=== PATIENT | male | born 1970 | race Caucasian/White ===

== ENCOUNTER → 2016-08-22 | Outpatient (CLI) | payer OTHER, MEDICARE, MEDICAID ==
[~2016-08-22] MED LIST: 'PARAFON FORTE500 M1 PO; AMBIEN10 M1 PO; AMOXICILLIN500 MG PO; ANAPROX DS550 MG PO; ANUSOL-HC25 MG R; ASPIRIN CHEWABL81 M1 PO; ATIVAN0.5 MG PO; AUGMENTIN 875875 MG PO; CELEXA20 MG PO; CIPRO500 MG PO; COREG12.5 MG PO; COREG25 MG PO; DARVOCET N 1001 TAB PO; DAYPRO600 M1 PO; DEXILANT60 M1 PO; DEXILANT60 MG PO; FLONASE ALLERG9.9 ML NAS; FLUDROCORTISON0.1 MG PO; HYDR25T PO; HYDROCHLOROTHIA25 M1 PO; KEFLEX500 MG PO; LISINOPRIL5 MG PO; LOPRESSOR25 MG PO; METOPROLOL TART50 M1 PO; METOPROLOL50 MG PO; MIDODRINE HCL5 M1 PO; MOTRIN800 MG PO; NAPROSYN500 MG PO; NILSTAT,MY500000 UN/ PO; NORCO 325 MG-51 TAB PO; NORVASC10 MG PO; NORVASC5 MG PO; PENICILLIN-VK500 M1 PO; PERCOCET 325 MG1 TA2 PO; PERCOCET 325 MG1 TA7 PO; PRAVASTATIN SOD20 MG PO; PRILOSEC20 MG PO; PRILOSEC40 MG PO; PRINIVIL10 MG PO; REQUIP1 TAB PO; SEA-OMEGA 50 C1 EACH PO; TOPROL XL25 MG PO; TRICOR145 MG PO; ULTRAM50 MG PO; VASOTEC20 MG PO; VICODIN 500 MG-1 TAB PO; VYTORIN 10 MG-11 TAB PO; WARFARIN 2.5 MG PO; WARFARIN SODIUM1 MG PO; WARFARIN2 MG PO; ZOFRAN ODT4 MG SL; ZOFRAN4 MG PO; ZOLOFT50 MG PO; ZYRTEC10 MG PO; [UNRECOGNIZED DRUG - REMARK]
== END | disposition home or self-care (01) ==
LOC: RAD 15:22
DX: M54.16 Radiculopathy, lumbar region (principal); M54.5 Low back pain; G89.29 Other chronic pain

== ENCOUNTER 2016-10-31 14:16 | Inpatient (IN) | payer MEDICARE, MEDICAID ==
[~2016-10-31] VITALS: Ht 193 cm; Wt 110.2 kg
--- NOTE | ~2016-10-31 | ST ---
[place], [place] EXERCISE STRESS TEST REPORT [id number] UNIT #: [id number] ROOM: 405 DOCTOR: DILIA WARREN MD BIRTHDATE: [birth year] DOS: 11/02/2016 INDICATION: Chest pain. PROCEDURE: The patient was brought into the stress lab. The procedure was explained with risks, benefits, and alternatives. Lexiscan was given. The resting blood pressure 102/72 with ending blood pressure 102/78. The patient tolerated this procedure well. ELECTROCARDIOGRAM INTERPRETATION: Resting electrocardiogram showing normal sinus rhythm, heart rate 76, poor R-wave progression, and mild nonspecific ST-T changes. Following the injection, there was no evidence of any significant ST or T-wave changes suggestive of myocardial ischemia. No arrhythmias were noted. SUMMARY: 1. Adequate Lexiscan stress test. 2. Negative Lexiscan stress test with stress-induced myocardial ischemia. 3. No arrhythmias were noted. 4. Myoview results will be reported separately. DILIA WARREN MD CM:STRESS:EXERCISE STRESS TEST REPORT [id number] DILIA WARREN MD
--- NOTE | ~2016-10-31 | PR ---
[place], [place] PROGRESS NOTE NAME: LIVE SMILEY UNIT #: [id number] ROOM: 405 DOCTOR: MARY ANNE ZELAYA MD BIRTHDATE: [birth year] DOS: 11/01/2016 SUBJECTIVE: The patient still complaining of persistent sweats, left-sided chest pains and is discussing this with bag loader, Dr. Ángel Guerrier who is quite concerned about his symptoms, although his cardiac enzymes have been negative. Dr. Ángel Guerrier is planning to get an echocardiogram and a cardiac stress test. OBJECTIVE: GENERAL APPEARANCE: The patient is alert and oriented x 3, in no visible distress. HEENT AND NECK: Exam within normal limits. CARDIOVASCULAR SYSTEM: Heart rate is regular in rate and rhythm. S1 and S2 normally audible. LUNGS: Clear to auscultation. ABDOMEN: Soft, nontender. No obvious organomegaly. Bowel sounds are present. EXTREMITIES: Without significant cyanosis or edema. IMPRESSION: 1. Left-sided chest pain, sweating, shortness of breath. All symptoms of angina, but all cardiac enzymes are negative. It appears highly unlikely that the patient is having myocardial ischemia. The patient will be further worked up for symptoms with an echocardiogram and a cardiac stress test by Cardiology as discussed with them today. 2. Chronic diastolic type congestive heart failure without increasing shortness of breath. 3. Benign essential hypertension with controlled blood pressures. 4. History of coronary artery disease of the [place] vessels. 5. Gastroesophageal reflux disease and esophagitis, presently asymptomatic. MARY ANNE ZELAYA MD CM:PNTRANS [id number] MARY ANNE ZELAYA MD 11/02/16 0115 interface
--- NOTE | ~2016-10-31 | PR ---
[place], [place] PROGRESS NOTE NAME: LIVE SMILEY UNIT #: [id number] ROOM: 405 DOCTOR: DILIA WARREN MD BIRTHDATE: [birth year] DOS: 11/02/2016 REFERRING PHYSICIAN: Dr. Darin Oconnell. SUBJECTIVE: The patient is in the stress lab. Sitting in a chair. Denies any specific cardiac complaint. No chest pain, no chest pressure, no symptomatic palpitation, no recurrent sweats. OBJECTIVE: VITAL SIGNS: Blood pressure 122/78, heart rate 73, respiratory rate of 16, temperature 98.2. NECK: Good upstroke, no bruit. HEART: S1, S2, no rub. LUNGS: Clear to auscultation. EXTREMITIES: Lower extremities, no edema. LABORATORY DATA: White count 9.8, hemoglobin is 14.4. There is no left shift, sed rate is 11. C-reactive protein is 1.1, troponin less than 0.015 x 3. Echocardiogram still pending. Stress test in process of obtaining the procedure. ASSESSMENT AND PLAN: Presentation with chest pain that have some typical features. So far, cardiac enzymes have been negative. We are awaiting the results of the stress test this morning, the patient requested to re-Lexiscan. Drenching sweats along with previous history of AICD, for that an echocardiogram will be done to rule out any vegetations though patient's sed rate is low and white count is normal and there is no evidence of left shift. The patient can be discharged home if the nuclear images and the echocardiogram results are normal. The patient has a followup appointment with ____ next week and he will keep that. The patient was advised to call back should there be any recurrence of his symptoms at any time. [place], [place] PROGRESS NOTE NAME: LIVE SMILEY UNIT #: [id number] ROOM: 405 DOCTOR: DILIA WARREN MD BIRTHDATE: [birth year] DILIA WARREN MD CM:PNTRANS [id number] DILIA WARREN MD 11/02/16 2215 interface
--- NOTE | ~2016-10-31 | WRIGHTHP ---
[place], [place] PATIENT HISTORY AND PHYSICAL EXAM NAME: LIVE SMILEY [facility] #: [id number] UNIT #: [id number] ROOM: 405 DOCTOR: MARY ANNE ZELAYA MD BIRTHDATE: [birth year] DOS: 10/31/2016 HISTORY OF PRESENT ILLNESS: 1. The patient is a 46-year-old gentleman with a past medical history of chronic diastolic type congestive heart failure. 2. Alcoholic cardiomyopathy. 3. Coronary artery disease of the [place] vessels. 4. Benign essential hypertension. 5. Major depression, recurrent. 6. Gastroesophageal reflux disease. 7. Chronically elevated liver enzymes. 8. Orthostatic hypotension. The patient presented to the Emergency Department with 3-day complaints of left-sided chest pains radiating down his left arm and shortness of breath and sweating for about 3 days since he was out in the yard and cutting grass. The patient feels that he has a pulled muscle, strain muscle in his left chest. The patient was evaluated in the Emergency Department and CT angiogram showed no abnormality and troponin I level was negative, even after 3 days of chest pains. There was no leukocytosis and despite of complaining of shortness of breath, chest x-ray did not show any signs of congestive heart failure. There was no leukocytosis, no signs of pneumonia. The patient was admitted to [facility] for continued care to a monitored bed. REVIEW OF SYSTEMS: LUNGS: Increasing shortness of breath. GASTROINTESTINAL: Some nausea, but no vomiting. CARDIOVASCULAR: Complains of left-sided chest pains, no palpitations. PHYSICAL EXAMINATION: VITAL SIGNS: Blood pressure 140/98, heart rate 90 beats per minute, breathing 22 times per minute, temperature 98 degrees Fahrenheit. GENERAL APPEARANCE: The patient is alert and oriented x 3, in no visible distress. HEENT AND NECK: Extraocular movements are intact. Sclerae are anicteric. Oral mucosa is moist and clean. No obvious facial weakness. Neck is supple without any lymphadenopathy. No thyromegaly. No JVD. No carotid arterial bruits. LUNGS: Clear to auscultation. No wheezing. No rhonchi. CARDIOVASCULAR SYSTEM: Heart rate is regular in rate and rhythm. S1 and S2 normally audible. No significant murmur or any other abnormal cardiac sounds. ABDOMEN: Soft, nontender. No obvious organomegaly. Bowel sounds are present. No obvious herniation. EXTREMITIES: Without significant cyanosis or edema. Warm to touch. CENTRAL NERVOUS SYSTEM: Alert and oriented x 3. Cranial nerves II-XII are intact. Speech is normal. The patient is able to move all extremities. Normal muscle strength. Deep tendon reflexes are equal on both sides. Plantars were downgoing. IMPRESSION: 1. The patient presenting with left-sided chest pain with negative cardiac [place], [place] PATIENT HISTORY AND PHYSICAL EXAM NAME: LIVE SMILEY UNIT #: [id number] ROOM: 405 DOCTOR: MARY ANNE ZELAYA MD BIRTHDATE: [birth year] enzymes. The patient has had these pains along with shortness of breath and nausea and sweating for about 3 days. If these pains were cardiac in origin, I would have expected the troponin I levels in the Emergency Department to be elevated. The patient been admitted and I am getting a stat consult with his vessel engineer, Dr. Gore and group. I will also keep him on morphine and his home medications. 2. Chronic diastolic type congestive heart failure, presently no signs of heart failure on chest x-ray. 3. Benign essential hypertension with elevated blood pressure apparently because the patient appears anxious and is complaining of pain, although his blood pressures have normalized. The patient says that his blood pressure was evaluated when he came to the ER along with a heart rate of 104 beats per minute with a systolic blood pressure 163 but the blood pressure has normalized now. 4. History of coronary artery disease of the [place] vessels. 5. Gastroesophageal reflux disease and esophagitis, presently asymptomatic. PLAN: To follow closely. MARY ANNE ZELAYA MD CM:HISPHYS:PATIENT HISTORY AND PHYSICAL EXAMINATION 16 24 MARY ANNE ZELAYA MD 10/31/162223 interface
--- NOTE | ~2016-10-31 | CON ---
[place], [place] REPORT OF CONSULTATION NAME: LIVE SMILEY UNIT #: [id number] ROOM: 405 DOCTOR: BRIANA CHANDRATARANANUSHKA BIRTHDATE: [birth year] DOS: 10/31/2016 REQUESTING PHYSICIAN: Dr. Anish Webster REASON FOR CONSULTATION: Chest pain. ASSESSMENT: 1. Current presentation with dizziness, lightheadedness, and almost near syncope. 2. Severe drenching night sweats 2 days in a row. 3. Chest pain dull, aching, radiating to the jaw and left arm and also to the back. 4. History of severe cardiomyopathy due to alcohol abuse. The patient quit with complete recovery. 5. Reported hypertension. 6. Significant early family history of heart disease. 7. Status post AICD generator due to infection. 8. The patient reporting fever and chills. 9. Similar complaint of chest pain in December 2015. 10. Normal echocardiogram read by Dr. Soto in June 2015. 11. Normal Holter monitor read by Dr. Soto in December 2014. 12. The patient is status post LINQ placement, followed by Dr. Sargent. PLAN: 1. Cycle cardiac enzymes. 2. Check D-dimer. 3. Check sed rate and CRP. 4. Check UA. 5. Blood cultures. 6. Echocardiogram. 7. Lexiscan stress test. 8. Continue current medical regimen. 9. Obtain records from the patient's recent visit to Dr. Sargent's office and his LINQ check. 10. IV fluid. HISTORY AND PHYSICAL: The patient is a pleasant 46-year-old gentleman well known to our group through Dr. Gore and Dr. Soto. The patient carries history of severe cardiomyopathy due to alcohol, which he has been managed to quit with complete recovery of the heart, which was documented on echocardiogram read by Dr. Soto back in December of last year. The patient had been doing quite well but this Sunday and Sunday while mowing the lawn started feeling dizzy and lightheaded. The patient walked in the room, almost passed out and sat down and relaxed and started having chest pain while resting. The pain is substernal. It did reach 8/10, radiated straight to the back and also to the left arm and his jaw at the same time. This has continued. The patient managed to stay at home, during the night had significant episodes, 3 of them on Sunday, of drenching sweats. He was forced to change the sheets. On Sunday night, had recurrent episodes similar to what happened Sunday, but this time, had only 2 episodes. The patient on presentation to the hospital, he has still [place], [place] REPORT OF CONSULTATION NAME: LIVE SMILEY UNIT #: [id number] ROOM: 405 DOCTOR: DILIA WARREN MD BIRTHDATE: [birth year] the chest pain, nitroglycerin was given with some improvement. Going by his record, the patient had similar presentation with Dr. Gore in December. Prior to this Sunday, the patient had been doing relatively well, active without any specific cardiac complaints. The patient did report fever, chills along with the night sweats that described above. His appetite is slightly decreased, but there is no reported weight loss. No PND, orthopnea or pedal edema. There is no reported symptomatic palpitation or any associated dizziness, lightheadedness or near syncope. PAST MEDICAL HISTORY: As detailed in my assessment. SOCIAL HISTORY: The patient denies any current alcohol or illicit drug abuse. He continued to smoke a few cigarettes, had been doing this for the past 23 years. FAMILY HISTORY: Significant early family history of heart disease. The patient's father had bypass surgery at age 53. His brother had a stroke at age 52. His mother had stents in her 50s. CURRENT MEDICATIONS: Hydrochlorothiazide, Protonix, Zofran, Toprol, lisinopril, Norvasc, Tylenol, sublingual nitro, morphine, Ambien and aspirin. REVIEW OF SYSTEMS: The patient currently denies any headache, diplopia, or blurry vision. No fever, no chills, no night sweats. Continued to be dizzy with any minimal activity like going to the bathroom in his room. No abdominal pain, no bright blood per rectum or tarry stools. The patient admits to joint pain and muscular pain. Admits to depression, but no anxiety. No polyuria, no polydipsia, no skin rash. Review of all other systems has been negative. PHYSICAL EXAMINATION: GENERAL: The patient is alert, oriented x3, quite pleasant. The patient is completely flat in bed, does not appear in distress. VITAL SIGNS: Blood pressure 125/73, heart rate 66, respiratory rate of 18, temperature 97.3, T-max is 97.8. HEENT: Extraocular muscles intact. Pupils equal, round, reactive to light. Conjunctivae: No pallor. Throat: No petechiae. NECK: Good upstroke. Unable to appreciate any bruit, no lymphadenopathy, no thyromegaly. HEART: S1, S2 with holosystolic murmur in the left upper sternal border. No rub or sternal heave. CHEST AND BACK: No deformities. LUNGS: Clear to auscultation. Good air movement. No wheezing, rales. ABDOMEN: Soft, nontender, present bowel sounds, no masses, no bruits. EXTREMITIES: Lower extremities, mild ankle edema with faint distal pulses. NEUROLOGIC: Grossly nonfocal. SKIN: No significant rash. Electrocardiogram show normal sinus rhythm. LABORATORY DATA: White count 9.8. There is no left shift, hemoglobin 15.4. [place], [place] REPORT OF CONSULTATION NAME: LIVE SMILEY UNIT #: [id number] ROOM: 405 DOCTOR: DILIA WARREN MD BIRTHDATE: [birth year] Troponin less than 0.015 times 3. The potassium 3.4, creatinine . AST 88, ALT 119, alkaline phosphatase 95, magnesium 1.3, GFR more than 60%. DILIA WARREN MD CM:CONSTR:REPORT OF CONSULTATION 0941 11/01/16 2343 interface
[2016-10-31 14:28] VITALS: BP 163/87
[2016-10-31 14:40] LABS: BASO % 0.4 % (0.0-1.0); EOS # 0.1 10*3/uL (0.0-0.4); EOS % 1.2 % (1.0-4.0); HEMATOCRIT 43.8 % (42.0-52.0); HEMOGLOBIN 15.4 g/dl (14.0-18.0); LYMPH # 3.2 10*3/uL (1.3-4.4); LYMPH % 32.3 % (27.0-41.0); MEAN CELL VOLUME 87.3 fl (80.0-94.0); MEAN CORPUSCULAR HGB 30.7 pg (27.0-31.0); MEAN CORPUSCULAR HGB CONC 35.2 g/dl (33.0-37.0); MEAN PLATELET VOLUME 9.4 fl (9.6-12.3); MONO # 0.7 10*3/uL (0.1-1.0); MONO % 7.4 % (3.0-9.0); NEUT # 5.7 10*3/uL (2.3-7.9); NEUT % 58.3 % (47.0-73.0); PLATELET COUNT AUTOMATED 256 10*3/uL (130-400); RED BLOOD COUNT 5.02 10*6/uL (4.50-5.90); RED CELL DISTRI WIDTH 12.9 % (0-14.5); WHITE BLOOD COUNT 9.8 10*3/uL (4.8-10.8)
[2016-10-31 14:58] LABS: ALBUMIN 3.6 gm/dl (3.1-4.5); ALKALINE PHOSPHATASE 95 U/L (45-117); BILIRUBIN, TOTAL 0.6 mg/dl (0.2-1.0); BUN 17 mg/dl (7-24); CARBON DIOXIDE 23 mmol/L (21-32); CHLORIDE 98 mmol/L (98-107); EST GLOM FILT AFRICAN AMERICAN > 60 ml/min; GLUCOSE 128 mg/dL (65-99); MAGNESIUM 1.3 mg/dL (1.5-2.1); POTASSIUM 3.4 mmol/L (3.5-5.1); SGOT/AST 88 IU/L (3-35); SGPT/ALT 119 U/L (12-78); SODIUM 138 mmol/L (136-145); TOTAL PROTEIN 7.8 gm/dL (6.4-8.2)
[2016-10-31 14:59] LABS: TROPONIN I < 0.015 ng/ml (<0.045)
[2016-10-31 15:16] VITALS: BP 135/85
[2016-10-31 15:28] VITALS: BP 141/81
[2016-10-31 16:00] VITALS: BP 135/96
[2016-10-31 16:56] VITALS: BP 141/97
[2016-10-31 18:00] VITALS: BP 140/98
[2016-11-01] VITALS: BP 119/80
[2016-11-01 08:00] VITALS: BP 125/73
[2016-11-01 12:00] VITALS: BP 130/72
[2016-11-01 16:00] VITALS: BP 115/57
[2016-11-01 20:00] VITALS: BP 124/76
[2016-11-02] VITALS: BP 114/65
[2016-11-02 08:00] VITALS: BP 122/78
[2016-11-02 16:00] VITALS: BP 129/74
== END 2016-11-02 19:19 | disposition home or self-care (01) | DRG 313 ==
LOC: ED 14:16 → EDHOLD 15:59 → 4E 15:59
PROVIDERS: Emergency Medicine
PROC: 4A02XM4 Measurement of Cardiac Total Activity, External Approach (ICD-10-PCS; principal; 2016-11-02)
DX: R07.89 Other chest pain (principal); I25.10 Atherosclerotic heart disease of native coronary artery without angina pectoris; I42.6 Alcoholic cardiomyopathy; I50.32 Chronic diastolic (congestive) heart failure; I11.0 Hypertensive heart disease with heart failure; E83.42 Hypomagnesemia; F33.9 Major depressive disorder, recurrent, unspecified; K21.0 Gastro-esophageal reflux disease with esophagitis; F17.210 Nicotine dependence, cigarettes, uncomplicated; F10.10 Alcohol abuse, uncomplicated; Z82.49 Family history of ischemic heart disease and other diseases of the circulatory system; Z95.810 Presence of automatic (implantable) cardiac defibrillator; Z82.3 Family history of stroke; Z91.048 Other nonmedicinal substance allergy status; Z86.711 Personal history of pulmonary embolism

== ENCOUNTER 2017-01-05 17:44 | Inpatient (IN) | payer MEDICARE, MEDICAID ==
[~2017-01-05] VITALS: Ht 193 cm; Wt 113.9 kg
--- NOTE | ~2017-01-05 | DS ---
[place], [place] DISCHARGE SUMMARY [id number] UNIT #: [id number] ROOM: 529 DOCTOR: VIVIAN DUKE MD BIRTHDATE: [birth year] DOS: 01/07/2017 DIAGNOSES: 1. Precordial chest pain, ruled out for myocardial infarction. 2. History of alcoholic cardiomyopathy, is improved. 3. History of pacemaker, AICD placement. These devices have been removed. 4. Acute gouty arthritis, right foot. 5. Hyperuricemia. 6. Transaminitis. 7. Hypertriglyceridemia. MEDICATIONS ON DISCHARGE: Lopid 600 mg p.o. b.i.d., indomethacin 25 t.i.d. for 7 days, allopurinol 100 mg daily, Dexilant 60 daily, zolpidem 10 at bedtime, Requip 1 mg at bedtime p.r.n., metoprolol 25 b.i.d., enalapril 20 b.i.d., amlodipine 5 b.i.d., clonidine 0.1 b.i.d. p.r.n. HOSPITAL COURSE: The patient is a 46-year-old, known to me from previous admissions, comes in with complaints of chest pain and right foot pain. Please refer to H and P for details. After admission, rule out AK protocol was done which is ruled out. Consultation with Dr. Soto was obtained. He had a cardiac workup in 10/2016 which included a stress test and an echocardiogram, which were normal, so these have not been repeated, so no further cardiac workup is being done. He was noted to have hyperuricemia and acute gouty arthritis of the right foot. Indocin and allopurinol were started. The patient also has history of chronic transaminitis of unknown etiology. He has history of alcohol abuse, but states that he has been dry for the last 7 years. We will need to have a liver scan done as an outpatient since I was unable to do it over the weekend. He also was noted to have hypertriglyceridemia, Lopid was started, most likely has fatty infiltration, which is causing the LFT elevation. The patient is advised to follow up with his PCP, so he can further address these issues. His medications have been prescribed. As advised, continue low fat diet and avoid alcohol. [place], [place] DISCHARGE SUMMARY NAME: LIVE SMILEY UNIT #: [id number] ROOM: 529 DOCTOR: VIVIAN DUKE MD BIRTHDATE: [birth year] VIVIAN DUKE MD CM:MARIA L [id number] VIVIAN DUKE MD 01/08/17 0513 interface
--- NOTE | ~2017-01-05 | WRIGHTHP ---
[place], [place] PATIENT HISTORY AND PHYSICAL EXAM [facility] [id number] UNIT #: [id number] ROOM: 529 DOCTOR: VIVIAN DUKE MD BIRTHDATE: [birth year] DOS: 01/06/2017 HISTORY OF PRESENT ILLNESS: This patient is 46-year-old, known to me from previous admissions. He comes in with complaints of right ankle pain. The patient states that he was unable to move the ankle and also his right leg started hurting and thought he would have blood clot and so he decided to come in. He did not have any chest pain at the time he came in to the Emergency Room, but on closer questioning, he stated that he was having chest pain the day prior to this admission. He denies having any nausea, any emesis, any fever, chills, any abdominal pain. He was evaluated in the ER with an EKG and routine blood work and was admitted because of EKG changes. The patient this morning complains of severe foot pain and states that he is unable to even move the foot. PAST MEDICAL HISTORY: Significant for: 1. Last hospitalization in 10/2016 with transaminitis and chest pain, had a negative stress test at that time. 2. History of cardiomyopathy with history of pacemaker defibrillator, which were both removed when his ejection fraction improved. 3. Benign hypertension. 4. History of drug abuse. 5. History of alcohol abuse. 6. Poorly controlled hypertension. MEDICATIONS: Amlodipine 5 b.i.d., clonidine 0.1 b.i.d., Dexilant 60 daily, Vasotec 20 b.i.d., metoprolol 25 b.i.d., Requip 1 mg at bedtime, zolpidem 10 at bedtime. SOCIAL HISTORY: Nonsmoker, does not use any alcohol. The patient states that he is clean for the last 7 years. He occasionally smokes cigarettes, but it is a rare occurrence as per the patient. PHYSICAL EXAMINATION: GENERAL: He is awake and alert and oriented. VITAL SIGNS: Graphic trend shows that he is afebrile. Blood pressure is 142/70, pulse of 86, respirations 16. HEAD AND NECK: Within normal limits. LUNGS: Clear. HEART: Regular. ABDOMEN: Obese, soft, nontender. EXTREMITIES: I do not see any redness or any swelling suggestive of acute gout, but the patient complains of severe pain and is unable to move it. LABORATORY DATA: At the time of admission, uric acid is 9.5, white blood cell count is 10.4, hemoglobin 15.9, hematocrit 45.7. Chest x-ray shows no acute process. Comprehensive glucose 165, BUN 6, creatinine 0.92, potassium 3.3, SGOT 106, SGPT 89, alkaline phosphatase 132. Venous extremity of the lower legs shows no DVT. Protime 11.3, INR 1.1. CT of the chest, no evidence of PE. ASSESSMENT AND PLAN: [place], [place] PATIENT HISTORY AND PHYSICAL EXAM NAME: LIVE SMILEY UNIT #: [id number] ROOM: 529 DOCTOR: VIVIAN DUKE MD BIRTHDATE: [birth year] 1. The patient comes in with complaints of chest pain with some minimal T-wave inversions in the lateral leads, which is new when compared with previous EKG. The patient, however, had a stress test in October which was negative. We will ask Dr. Gore for an opinion. Three sets of enzymes were done and the patient's enzymes were negative. I did order Lovenox and nitrate. The patient did not receive Lovenox during the night for some unknown reason. Since his enzymes are negative, we will discontinue the Lovenox. Continue the nitrates. 2. Benign hypertension. History of poorly controlled hypertension, pressures, right now within normal limits. 3. Acute pain of his right foot. Uric acid was elevated, but the patient does not have any classic signs of gouty arthritis on exam, but we will put the patient on Indocin and allopurinol. We will ask Dr. Brush for an opinion. 4. Elevated liver enzymes noted, which he had in a previous visit here 2 months ago. Liver scan will be ordered. This most likely is from fatty infiltration of liver and hypertriglyceridemia. We will also add Lopid for that. VIVIAN DUKE MD CM:HISPHYS:PATIENT HISTORY AND PHYSICAL EXAMINATION [phone] VIVIAN DUKE MD 01/06/17 0853 interface
--- NOTE | ~2017-01-05 | CON ---
[place], [place] REPORT OF CONSULTATION NAME: LIVE SMILEY UNIT #: [id number] ROOM: 529 DOCTOR: LUISA WAGNER MD BIRTHDATE: [birth year] DOS: 01/06/2017 CARDIOLOGY CONSULTATION REASON FOR CONSULTATION: Chest pain, electrocardiographic changes. HISTORY OF PRESENT ILLNESS: This is one of several hospitalizations for the patient who is a 46-year-old man who does have a history of a dilated nonischemic cardiomyopathy, which was attributed to alcohol abuse in the past. He has been abstinent of alcohol for several years and his left ventricular function has improved. He did have an ICD placed in the distant past. He developed pocket erosion and an infection of the pacer site. Therefore, the device and its wire were removed. He has not had any documented ventricular tachycardia since then and in fact does have LINQ implantable monitor, which has shown no significant arrhythmias. The patient is known to have orthostatic hypotension and neurocardiogenic syncope. He has had a positive tilt table in the past. His catheterization on 08/12/2014 showed normal coronary arteries with an ejection fraction of 50%. A stress test on 11/02/2016 showed ejection fraction of 59% and no ischemia. The patient states that he was well until 2 nights ago. He did have an aching sensation in his chest, which was differed from anything he had experienced previously. It was not pleuritic or associated with diaphoresis, although he did feel somewhat short of breath. He was able to sleep with it, but when he woke up the next day he had severe pain in his right calf and first toe. There was minimal swelling that he reported. The pain in his chest had resolved entirely by that time and has not recurred. Since he has been in the hospital, his cardiac biomarkers have been normal; however, his electrocardiogram did show lateral T-wave inversions which were not present on previous EKG. Please note that I did pull out several EKGs from my office and he did have similar electrocardiographic changes on 08/21/2015 and 08/03/2015. Aside from his leg, he currently feels well. PAST MEDICAL HISTORY: Includes 1. Multiple syncopal episodes, felt to be due to neurocardiogenic syncope. 2. Tilt table study done by Dr. Dawood Tate on 09/09/2014 was positive for neurocardiogenic syncope. 3. 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 The ICD and his leads were eventually explanted because of a pacer pocket infection and pocket erosion. 4. History of cardiac catheterization on 08/12/[address] Brett Cloud, demonstrated normal coronary arteries with low normal left ventricular ejection fraction at 50%. 5. History of paroxysmal atrial fibrillation. 6. History of pulmonary emboli. 7. Atypical chest pain, most likely gastrointestinal in origin. 8. History of ethanol abuse, currently in remission. The patient states that he has been clean and sober for years. [place], [place] REPORT OF CONSULTATION NAME: LIVE SMILEY UNIT #: [id number] ROOM: 529 DOCTOR: LUISA WAGNER MD BIRTHDATE: [birth year] 9. Hypertension. 10. Echocardiogram on 07/14/2015, showed normal left ventricular size with mild concentric left ventricular hypertrophy and global hypokinesis. Estimated ejection fraction 40-45% with stage II diastolic dysfunction. No significant valve abnormalities. 11. History of obstructive sleep apnea. He was treated for a short time, but did not feel any improvement, so CPAP was discontinued. 12. Holter monitor done in 07/2015 showed normal sinus rhythm with normal heart rate variation and occasional premature contractions, but no sustained SVT or ventricular tachycardia and no prolonged pauses. 13. Myocardial perfusion study on 11/02/2016 showed normal ejection fraction of 59% and no ischemia. MEDICATIONS: Prior to admission, amlodipine 5 mg b.i.d., clonidine 0.1 mg b.i.d. p.r.n., Dexilant 60 mg daily, enalapril 20 mg b.i.d., metoprolol XL 25 mg b.i.d., Requip 1 tablet at bedtime and Ambien 10 mg at bedtime p.r.n. ALLERGIES: The patient lists allergies to TAPE. REVIEW OF SYSTEMS: The patient denies diplopia or loss of vision. He denies any focal weakness, but cannot stand on his right leg because of severe calf and foot pain. The patient does complain of lightheadedness, but has not had any syncope or recent falling episodes. He does have intermittent palpitations and chest pain. He denies orthopnea or PND. He does have dyspnea with exertion. He denies fevers, chills, sweats or recent weight change. He denies any skin rashes. He denies any change in his bowel or bladder habits and denies bleeding from his urine or stools. He denies any peripheral edema. He denies any hot, red or swollen joints and states he has never had gout. He denies pleuritic chest pain. He does have anxiety and depression. Remainder of the review of systems is negative except as noted above. SOCIAL HISTORY: The patient is and lives with his . He was an alcoholic, but states that he has been abstinent of all alcohol. He does smoke 3-4 cigarettes a day. PHYSICAL EXAMINATION: GENERAL: The patient is a well-nourished white male who is awake, alert and oriented. VITAL SIGNS: Pulse is 80 and regular, blood pressure is 124/78. He is afebrile. He weighs 113.9 kilograms with a body mass index of 30.6. HEENT: Normocephalic, atraumatic. Extraocular muscles are intact. Sclerae are clear. Pupils are equal, round and reactive to light. The oral mucosa is moist. Tongue is midline. NECK: Supple. He has no jugular distention. Carotids are full. He has no bruits. He has no neck or supraclavicular masses. No thyromegaly. LUNGS: Respirations are unlabored. His chest is clear to auscultation and percussion. He has no presacral edema or chest wall tenderness. CARDIOVASCULAR: His heart has a regular rhythm. He has a soft fourth heart sound, but no third heart sound. He has no murmur. He has no rubs. The PMI is not displaced. There is no precordial heave, lift or thrill. [place], [place] REPORT OF CONSULTATION NAME: LIVE SMILEY UNIT #: [id number] ROOM: 529 DOCTOR: LUISA WAGNER MD BIRTHDATE: [birth year] ABDOMEN: Soft and normoactive without masses, organomegaly or bruits. EXTREMITIES: Showed no edema on either side. His right ankle is slightly tender to palpation. Pedal pulses are easily palpated bilaterally. He has no palpable cords or hot or swollen joints. LABORATORY DATA: Hemoglobin is 15.9, white count 10,400, platelet count 273,000. INR 1.1, sodium 138, potassium 3.3, BUN 6, creatinine 0.9, uric acid mildly elevated at 9.5. AST elevated at 106, ALT elevated at 189, alkaline phosphatase elevated at 132. CK and troponins are normal. I reviewed his electrocardiogram, which showed sinus rhythm with nonspecific T-wave flattening in I and aVL and asymmetric T-wave inversion from V2 through V6. His most recent EKG from [facility] did not show these changes; however, old electrocardiograms from my office dated 08/03/2015 and 08/21/2015 are similar to the current study. IMPRESSIONS: 1. Atypical chest pain. The patient shows no signs of an acute myocardial infarction. 2. History of alcohol-induced cardiomyopathy from which the patient has recovered. 3. Palpitations, most likely due to normal variations in heart rhythm. 4. History of neurocardiogenic syncope and orthostatic hypotension. 5. Normal cardiac catheterization on 08/12/2014. 6. Abnormal electrocardiogram possibly due to positional changes, hyperventilation, etc. There is no evidence on his exam or EKG that he is having an acute ischemic event. PLAN: The patient is being treated for his leg pains. We will repeat electrocardiogram in the morning. If he is still here in the hospital in 48 hours, we will plan on doing an echocardiogram at that time to reassess his pericardium and left ventricular function. No other cardiac workup is planned at this time unless his status should change. We thank Dr. Carson for asking our advice regarding management of this patient. LUISA WAGNER MD CM:CONSTR:REPORT OF CONSULTATION 1628 01/06/17 2213 interface
--- NOTE | ~2017-01-05 | PR ---
[place], [place] PROGRESS NOTE NAME: LIVE SMILEY UNIT #: [id number] ROOM: 529 DOCTOR: VIVIAN DUKE MD BIRTHDATE: [birth year] DOS: SUBJECTIVE: The patient is doing fine, without any complaints. Denies any chest pains, palpitations, or shortness of breath. OBJECTIVE: VITAL SIGNS: ____ shows a pressure of 114/72, pulse of 74, respirations 20, temperature 98.5. LUNGS: Clear. HEART: Regular. ABDOMEN: Obese. EXTREMITIES: Without any edema. ASSESSMENT AND PLAN: 1. Right foot pain, most likely gouty arthritis with hyperuricemia, under control. 2. Chest pain. Cardiac workup in October was negative including a stress test. Dr. Soto agreed on not doing any further workup, could have an echocardiogram done as an outpatient, but she just had one done on October 2016, so it is not even 6 months ago and the patient to follow up with Dr. Santo. 3. Hypertriglyceridemia, medications have been started. VIVIAN DUKE MD CM:PNTRANS 0729 1020 VIVIAN DUKE MD 01/07/17 1445 interface
[2017-01-05 17:49] VITALS: BP 144/98
[2017-01-05 18:11] LABS: BASO # 0.1 10*3/uL (0.0-0.1); BASO % 0.5 % (0.0-1.0); EOS # 0.3 10*3/uL (0.0-0.4); EOS % 3.1 % (1.0-4.0); HEMATOCRIT 45.7 % (42.0-52.0); HEMOGLOBIN 15.9 g/dl (14.0-18.0); LYMPH # 3.1 10*3/uL (1.3-4.4); MEAN CELL VOLUME 85.7 fl (80.0-94.0); MEAN CORPUSCULAR HGB 29.8 pg (27.0-31.0); MEAN CORPUSCULAR HGB CONC 34.8 g/dl (33.0-37.0); MEAN PLATELET VOLUME 9.9 fl (9.6-12.3); MONO # 1.1 10*3/uL (0.1-1.0); MONO % 10.1 % (3.0-9.0); NEUT # 5.8 10*3/uL (2.3-7.9); PLATELET COUNT AUTOMATED 273 10*3/uL (130-400); RED BLOOD COUNT 5.33 10*6/uL (4.50-5.90); RED CELL DISTRI WIDTH 12.5 % (0-14.5); WHITE BLOOD COUNT 10.4 10*3/uL (4.8-10.8)
[2017-01-05 18:27] LABS: ALBUMIN 3.6 gm/dl (3.1-4.5); ALKALINE PHOSPHATASE 132 U/L (45-117); BILIRUBIN, TOTAL 0.7 mg/dl (0.2-1.0); BUN 6 mg/dl (7-24); CARBON DIOXIDE 23 mmol/L (21-32); CHLORIDE 104 mmol/L (98-107); CKMB 0.6 ng/ml (0.5-3.6); CPK 80 U/L (39-308); EST GLOM FILT AFRICAN AMERICAN > 60 ml/min; GLUCOSE 165 mg/dL (65-99); LDH 164 U/L (87-241); MAGNESIUM 1.4 mg/dL (1.5-2.1); POTASSIUM 3.3 mmol/L (3.5-5.1); SGOT/AST 106 IU/L (3-35); SGPT/ALT 189 U/L (12-78); SODIUM 138 mmol/L (136-145); TOTAL PROTEIN 7.6 gm/dL (6.4-8.2); TROPONIN I < 0.015 ng/ml (<0.045)
[2017-01-05 19:00] LABS: INTERNATIONAL NORM RATIO 1.1 (2.0-3.5); PROTHROMBIN TIME 11.3 SECONDS (9.0-12.4)
[2017-01-05 19:30] VITALS: BP 140/88
[2017-01-06] VITALS: BP 180/101
[2017-01-06] MEDS ORDERED: 'CLONIDINE0.1 MG PO (00:06)
[2017-01-06 04:00] VITALS: BP 118/63
[2017-01-06 04:58] LABS: CHOLESTEROL 181 mg/dL (<200); HDL CHOLESTEROL 22 mg/dl (40-60); TRIGLYCERIDES 476 mg/dl (<150)
[2017-01-06 08:00] VITALS: BP 112/70
[2017-01-06 11:55] VITALS: BP 124/78
[2017-01-06 16:00] VITALS: BP 125/76
[2017-01-06 20:00] VITALS: BP 141/88
[2017-01-07] VITALS: BP 114/72
[2017-01-07] MEDS ORDERED: ALLOPURINOL100 MG PO (07:30)
[2017-01-07] MEDS ORDERED: INDOMETHACIN25 M1 PO (07:30)
[2017-01-07] MEDS ORDERED: GEMFIBROZIL600 MG PO (07:30)
[2017-01-07 08:00] VITALS: BP 130/96
== END 2017-01-07 08:05 | disposition home or self-care (01) | DRG 554 ==
LOC: ED 17:44 → EDHOLD 21:18 → 5E 21:18
PROVIDERS: Internal Medicine; Physician Assistant
DX: M10.071 Idiopathic gout, right ankle and foot (principal); I42.6 Alcoholic cardiomyopathy; R07.2 Precordial pain; E78.1 Pure hyperglyceridemia; R74.0 Nonspecific elevation of levels of transaminase and lactic acid dehydrogenase [LDH]; F10.10 Alcohol abuse, uncomplicated; F17.210 Nicotine dependence, cigarettes, uncomplicated; I10 Essential (primary) hypertension; I95.1 Orthostatic hypotension; Z91.048 Other nonmedicinal substance allergy status; Z79.899 Other long term (current) drug therapy; Z82.49 Family history of ischemic heart disease and other diseases of the circulatory system; Z95.810 Presence of automatic (implantable) cardiac defibrillator

== ENCOUNTER 2017-06-22 15:13 | Inpatient (IN) | payer MEDICARE ==
[~2017-06-22] VITALS: Ht 193 cm; Wt 99.3 kg
--- NOTE | ~2017-06-22 | CON ---
[place], [place] REPORT OF CONSULTATION NAME: LIVE SMILEY UNIT #: [id number] ROOM: [facility] DOCTOR: GEGE GIRON MD BIRTHDATE: [birth year] DOS: 06/23/2017 CHIEF COMPLAINT: "I just really need help, I don't want to kill myself." HISTORY OF PRESENT ILLNESS: This is a 47-year-old white male who was brought in to the Emergency Room after he was found by his girlfriend in the garage with a gun in his mouth. The patient apparently has been struggling with depression most acutely since March 2017. 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 The reports to me that he has suffered from depression even as a teenager and had been on Effexor in the past, but did not like it. He endorses poor sleep with lack of energy during the day, fluctuating appetite, lack of motivation. Most notably, he reports that the pain is one of the things that wears him down. The pain is significant; it is a constant 6 on a scale of 1-10 with 10 being the worst pain ever. He does report that he is open to trying medication and believes that if he were to get some help, he could turn things around. He unfortunately admits to smoking a pack of cigarettes daily. He drinks heavily and uses cocaine as well. MENTAL STATUS: He is alert and oriented. Mood does seem to be down and depressed. Affect is flat, blunted with constricted range. He does now deny suicidal thoughts and states that if he can get help, he knows he can turn things around. There is no syed or psychosis and memory is fully intact. DIAGNOSIS: Major depression, recurrent. PLAN: I am going to start him on Cymbalta 30 mg at bedtime. In a day or two, I would increase this to 60. I did discuss the case with his nurse and suggested that Satellite D[employer] Technician reach out and get him hooked up with both a counselor and an appointment with a psychiatrist or a psychiatric nurse practitioner to follow him for his medication. I do not believe he needs to have any forced stay in a mental health hospital and can be safely discharged then as long as he has a support network as an outpatient. GEGE GIRON MD CM:CONSTR:REPORT OF CONSULTATION 0939 06/23/17 1009 interface
[~2017-06-22 15:13] MED LIST changes: +'CLONIDINE0.1 MG PO; +ALLOPURINOL100 MG PO; +GEMFIBROZIL600 MG PO; +INDOMETHACIN25 M1 PO; +REQUIP1 M1 PO; -REQUIP1 TAB PO; -TOPROL XL25 MG PO; +TOPROL XL50 M1 PO
[2017-06-22 15:24] VITALS: BP 132/79
[2017-06-22 16:07] LABS: HEMATOCRIT 50.7 % (42.0-52.0); HEMOGLOBIN 17.7 g/dl (14.0-18.0); MEAN CELL VOLUME 84.6 fl (80.0-94.0); MEAN CORPUSCULAR HGB 29.5 pg (27.0-31.0); MEAN CORPUSCULAR HGB CONC 34.9 g/dl (33.0-37.0); MEAN PLATELET VOLUME 9.6 fl (9.6-12.3); PLATELET COUNT AUTOMATED 369 10*3/uL (130-400); RED BLOOD COUNT 5.99 10*6/uL (4.50-5.90); WHITE BLOOD COUNT 25.1 10*3/uL (4.8-10.8)
[2017-06-22 16:10] VITALS: BP 126/74
[2017-06-22 16:23] LABS: ALBUMIN 4.5 gm/dl (3.1-4.5); ALKALINE PHOSPHATASE 112 U/L (45-117); BUN 9 mg/dl (7-24); CHLORIDE 104 mmol/L (98-107); LIPASE 158 U/L (73-393); POTASSIUM 3.8 mmol/L (3.5-5.1); SGOT/AST 32 IU/L (3-35); SGPT/ALT 41 U/L (12-78); SODIUM 145 mmol/L (136-145); TOTAL PROTEIN 8.8 gm/dL (6.4-8.2)
[2017-06-22 16:25] LABS: TROPONIN I < 0.015 ng/ml (<0.045)
[2017-06-22 16:26] LABS: ACETAMINOPHEN (TYLENOL) < 2.0 ug/ml (10-30)
[2017-06-22 16:27] LABS: TOTAL CELLS COUNTED 100 #CELLS
[2017-06-22 16:28] LABS: PLATELET SUFFICIENCY NORMAL (NORMAL)
[2017-06-22 17:41] LABS: ACT PARTIAL THROMBO TIME 26.1 SECONDS (20.8-31.5); INTERNATIONAL NORM RATIO 1.1 (2.0-3.5)
[2017-06-22 17:42] VITALS: BP 112/70
[2017-06-22 18:25] VITALS: BP 124/80
[2017-06-22 18:53] LABS: BILIRUBIN NEGATIVE (NEGATIVE); BLOOD NEGATIVE (NEGATIVE); CLARITY SL CLOUDY (CLEAR); COLOR YELLOW (YELLOW); GLUCOSE NEGATIVE (NEGATIVE); KETONE 1+ (NEGATIVE); LEUKO ESTERASE NEGATIVE (NEGATIVE); NITRITE NEGATIVE (NEGATIVE); PH 5.5 (5.0-9.0); SPECIFIC GRAVITY >= 1.030 (1.005-1.030); UROBILINOGEN 0.2 E.U./dl (0.2-1.0)
[2017-06-22 18:58] LABS: BACTERIA 1+; EPITHELIAL CELLS 0-2; MUCOUS TRACE; RBC 0-2 rbc/hpf (0-2)
[2017-06-22 19:00] VITALS: BP 129/78
[2017-06-22 19:00] LABS: URINE AMPHETAMINES < 1000 (1000ng/ml); URINE BARBITURATES < 200 (200ng/ml); URINE BENZODIAZEPINES < 200 (200ng/ml); URINE CANNABINOIDS (THC) < 50 (50ng/ml); URINE COCAINE > 300 (300ng/ml); URINE METHADONE < 300 (300ng/ml); URINE OPIATES < 300 (300ng/ml)
[2017-06-22 19:04] LABS: URINE PHENCYCLIDINE < 25 (25ng/ml)
[2017-06-22 20:00] VITALS: BP 122/77
[2017-06-23] VITALS: BP 131/92
[2017-06-23] MEDS ORDERED: LIPITOR40 MG PO (00:47)
[2017-06-23] MEDS ORDERED: LANTUS SOL100 UNIT/1 SQ (00:47)
[2017-06-23] MEDS ORDERED: POTASSIUM CHLO20 ME3 PO (00:49)
[2017-06-23] MEDS ORDERED: METFORMIN500 MG PO (00:50)
[2017-06-23] MEDS ORDERED: NORCO 5-325 TA1 EACH PO (00:52)
[2017-06-23] MEDS ORDERED: METOCLOPRAMIDE5 MG PO (00:53)
[2017-06-23] MEDS ORDERED: COLCRYS0.6 M1 PO (00:54)
[2017-06-23 04:00] VITALS: BP 113/56
[2017-06-23 06:00] LABS: BASO % 0.5 % (0.0-1.0); EOS # 0.2 10*3/uL (0.0-0.4); EOS % 2.2 % (1.0-4.0); LYMPH # 3.5 10*3/uL (1.3-4.4); LYMPH % 44.7 % (27.0-41.0); MEAN CELL VOLUME 86.6 fl (80.0-94.0); MEAN CORPUSCULAR HGB 29.1 pg (27.0-31.0); MEAN CORPUSCULAR HGB CONC 33.6 g/dl (33.0-37.0); MEAN PLATELET VOLUME 9.8 fl (9.6-12.3); MONO # 0.9 10*3/uL (0.1-1.0); MONO % 10.9 % (3.0-9.0); NEUT # 3.3 10*3/uL (2.3-7.9); NEUT % 41.4 % (47.0-73.0); PLATELET COUNT AUTOMATED 259 10*3/uL (130-400); RED BLOOD COUNT 4.99 10*6/uL (4.50-5.90); WHITE BLOOD COUNT 7.9 10*3/uL (4.8-10.8)
[2017-06-23 06:03] LABS: BUN 10 mg/dl (7-24); CHLORIDE 102 mmol/L (98-107); CHOLESTEROL 164 mg/dL (<200); CREATININE 0.92 mg/dL (0.70-1.30); PHOSPHOROUS 3.9 mg/dL (2.5-4.9); POTASSIUM 3.1 mmol/L (3.5-5.1); SODIUM 140 mmol/L (136-145); TRIGLYCERIDES 231 mg/dl (<150); VLDL CHOLESTEROL 46 mg/dL (6-40)
[2017-06-23 06:09] LABS: HEMATOCRIT 43.2 % (42.0-52.0); HEMOGLOBIN 14.5 g/dl (14.0-18.0)
[2017-06-23 06:11] LABS: FREE T4 1.01 ng/dl (0.76-1.46); HDL CHOLESTEROL 34 mg/dl (40-60); LDL CHOLESTEROL 84 mg/dL (9-159); THYROID STIM HORMONE (HS) 0.822 uIU/ml (0.358-4.75)
[2017-06-23 06:18] LABS: ACT PARTIAL THROMBO TIME 25.2 SECONDS (20.8-31.5); INTERNATIONAL NORM RATIO 1.1 (2.0-3.5)
[2017-06-23 08:16] VITALS: BP 105/61
[2017-06-23 08:18] LABS: VITAMIN D, 25-HYDROXY 13.7 ng/mL (30-100)
[2017-06-23 12:00] VITALS: BP 112/68
[2017-06-23] MEDS ORDERED: NEURONTIN100 MG PO (12:50)
[2017-06-23] MEDS ORDERED: DULOXETINE HCL30 MG PO (15:08)
[2017-06-23 16:13] VITALS: BP 118/73
== END 2017-06-23 16:45 | disposition home or self-care (01) | DRG 638 ==
LOC: ED 15:13 → EDHOLD 17:28 → ICCU 17:48
PROVIDERS: Emergency Medicine; Internal Medicine
DX: E11.649 Type 2 diabetes mellitus with hypoglycemia without coma (principal); F33.2 Major depressive disorder, recurrent severe without psychotic features; I42.6 Alcoholic cardiomyopathy; R65.10 Systemic inflammatory response syndrome (SIRS) of non-infectious origin without acute organ dysfunction; I11.0 Hypertensive heart disease with heart failure; I50.42 Chronic combined systolic (congestive) and diastolic (congestive) heart failure; I48.0 Paroxysmal atrial fibrillation; R45.851 Suicidal ideations; R00.0 Tachycardia, unspecified; I25.10 Atherosclerotic heart disease of native coronary artery without angina pectoris; K21.9 Gastro-esophageal reflux disease without esophagitis; G47.33 Obstructive sleep apnea (adult) (pediatric); F19.90 Other psychoactive substance use, unspecified, uncomplicated; F41.9 Anxiety disorder, unspecified; J45.909 Unspecified asthma, uncomplicated; F14.10 Cocaine abuse, uncomplicated; G89.29 Other chronic pain; M54.9 Dorsalgia, unspecified; F10.10 Alcohol abuse, uncomplicated; M47.896 Other spondylosis, lumbar region; E78.00 Pure hypercholesterolemia, unspecified; E78.1 Pure hyperglyceridemia; Z79.899 Other long term (current) drug therapy; Z95.0 Presence of cardiac pacemaker; Z86.79 Personal history of other diseases of the circulatory system; Z72.0 Tobacco use; Z82.49 Family history of ischemic heart disease and other diseases of the circulatory system; Z91.048 Other nonmedicinal substance allergy status; Z86.711 Personal history of pulmonary embolism; Z79.4 Long term (current) use of insulin

== ENCOUNTER → 2017-08-16 | Outpatient (CLI) | payer MEDICARE ==
[~2017-08-16] MED LIST changes: +COLCRYS0.6 M1 PO; +DULOXETINE HCL30 MG PO; +LANTUS SOL100 UNIT/1 SQ; +LIPITOR40 MG PO; +METFORMIN500 MG PO; +METOCLOPRAMIDE5 MG PO; +NEURONTIN100 MG PO; +NORCO 5-325 TA1 EACH PO; +POTASSIUM CHLO20 ME3 PO; +REMERON15 M2 PO
--- NOTE | ~2017-08-16 | ST ---
[place], [place] EXERCISE STRESS TEST REPORT NAME: LIVE SMILEY UNIT #: [id number] ROOM: DOCTOR: LUISA WAGNER MD BIRTHDATE: [birth year] DOS: 08/16/2017 PHARMACOLOGIC STRESS TEST INDICATIONS: Chest pain. PROCEDURE: The patient was given a rapid infusion of regadenoson 0.4 mg intravenously over 20 seconds, followed by a saline flush. The patient experienced dyspnea and lightheadedness. The resting electrocardiogram showed sinus rhythm with left ventricular hypertrophy and secondary ST changes. With the infusion, he did have a normal tachycardic response, but no additional ST or T-wave changes. Forty seconds after the infusion of regadenoson, he was given radionuclide intravenously. IMPRESSION: 1. Well tolerated infusion of regadenoson. 2. Radionuclide administered. Please see the separate imaging report for further details of the patient's stress test results. LUISA WAGNER MD CM:STRESS:EXERCISE STRESS TEST REPORT 0904 0921 LUISA WAGNER MD
== END | disposition home or self-care (01) ==
LOC: CARD 02:01
DX: I48.91 Unspecified atrial fibrillation (principal); R07.9 Chest pain, unspecified; R53.81 Other malaise; R07.2 Precordial pain

== ENCOUNTER 2018-03-09 10:49 | Inpatient (IN) | payer MEDICARE ==
[2018-03-09] VITALS (7 sets, daily range): BP systolic 135–151; BP diastolic 79–100
[~2018-03-09] VITALS: Ht 193 cm; Wt 102.1 kg
--- NOTE | ~2018-03-09 | EKG ---
[place], [place] ELECTROCARDIOGRAM REPORT NAME: LIVE SMILEY UNIT #: [id number] ROOM: 521 DOCTOR: MANAV DRAFT REPORT BIRTHDATE: [birth year] [facility] Test Date: 2018-03-10 Test Time: 12:13:29 Pat Name: LIVE SMILEY Department: Room: 521 1 Gender: M Reserve Officer: Johana Arguello : 1970 Requested By: VERNON MANRIQUEZ Order Number: [id number] Reading MD: Enio Gore MD Measurements Intervals [place] Rate: 67 P: -13 GA: 170 QRS: -14 QRSD: 106 T: -27 QT: 408 QTc: 431 Interpretive Statements Sinus rhythm Borderline T abnormalities, inferior leads Baseline wander in lead(s) V2 Compared to ECG 03/09/2018 17:34:14 T-wave abnormality now present Ectopic atrial rhythm no longer present Possible ischemia no longer present Prolonged QT interval no longer present Electronically Signed On 03-11-2018 10:59:57 PDT by Enio Gore MD CM:EKGRPT:ELECTROCARDIOGRAM REPORT 1213 1059 VERNON MANRIQUEZ MD EPIPHANY DRAFT REPORT VERNON MANRIQUEZ MD
--- NOTE | ~2018-03-09 | EKG ---
[place], [place] ELECTROCARDIOGRAM REPORT NAME: LIVE SMILEY UNIT #: [id number] ROOM: 521 DOCTOR: MANAV DRAFT REPORT BIRTHDATE: [birth year] [facility] Test Date: 2018-03-09 Test Time: 14:26:48 Pat Name: LIVE SMILEY Department: Room: 521 Gender: M Veneer Drier Feeder: Hiwot Chicas : 1970 Requested By: MICHAEL IVERSON Order Number: [id number] Reading MD: Zenaida Meade MD Measurements Intervals [place] Rate: 64 P: 4 WA: 157 QRS: -17 QRSD: 108 T: -26 QT: 427 QTc: 441 Interpretive Statements Sinus rhythm Borderline left axis deviation Repol abnrm suggests ischemia, anterolateral Baseline wander in lead(s) II,III,aVR,aVL,aVF,V3,V4,V5,V6 Electronically Signed On 03-09-2018 15:13:12 PDT by Zenaida Meade MD CM:EKGRPT:ELECTROCARDIOGRAM REPORT 1426 1513 MICHAEL EM DRAFT REPORT MICHAEL IVERSON M.D.
--- NOTE | ~2018-03-09 | EKG ---
[place], [place] ELECTROCARDIOGRAM REPORT NAME: LIVE SMILEY UNIT #: [id number] ROOM: 521 DOCTOR: MANAV DRAFT REPORT BIRTHDATE: [birth year] [facility] Test Date: 2018-03-09 Test Time: 17:34:14 Pat Name: LIVE SMILEY Department: Room: 521 Gender: M Planning And Analysis Manager: Hiwot Chicas : 1970 Requested By: MICHAEL IVERSON Order Number: [id number] Reading MD: Zenaida Meade MD Measurements Intervals [place] Rate: 59 P: -49 MD: 153 QRS: -2 QRSD: 106 T: -14 QT: 551 QTc: 546 Interpretive Statements Sinus or ectopic atrial rhythm Abnrm T, consider ischemia, anterolateral lds Prolonged QT interval Baseline wander in lead(s) V1,V2,V3,V4,V5 Electronically Signed On 03-09-2018 15:14:24 PDT by Zenaida Meade MD CM:EKGRPT:ELECTROCARDIOGRAM REPORT 1734 1514 MICHAEL EM DRAFT REPORT MICHAEL IVERSON M.D.
--- NOTE | ~2018-03-09 | PR ---
[place], [place] PROGRESS NOTE NAME: LIVE SMILEY UNIT #: [id number] ROOM: 521 DOCTOR: MARY ANNE ZELAYA MD BIRTHDATE: [birth year] DOS: 03/10/2018 SUBJECTIVE: The patient continues to complain of some tightness in his chest. No other complaints. The patient is being evaluated by Cardiology. PHYSICAL EXAMINATION: VITAL SIGNS: Blood pressure 132/80, heart rate 60 beats per minute, breathing 16 times per minute, he is afebrile. GENERAL APPEARANCE: The patient is alert and oriented x 3, in no visible distress. HEENT AND NECK: Exam within normal limits. CARDIOVASCULAR SYSTEM: Heart rate is regular in rate and rhythm. S1 and S2 normally audible. LUNGS: Clear to auscultation. ABDOMEN: Soft, nontender. No obvious organomegaly. Bowel sounds are present. EXTREMITIES: Without significant cyanosis or edema. IMPRESSION: 1. Chest tightness from uncertain etiology with no history of coronary artery disease and a stress test normal last year. Has been evaluated by furnace combustion analyst, Dr. Meade and his cardiac enzymes have been negative. The patient's medications have been adjusted by Dr. Meade and Dr. Meade wants to keep him at the hospital overnight. 2. Benign essential hypertension, treated and controlled. Patient on metoprolol, Vasotec. 3. Behavioral issues for which the patient remains on mirtazapine. 4. Chronic pain syndrome. The patient remains on gabapentin. 5. Major depression, recurrent, moderate, treated with Cymbalta. 6. Type 2 diabetes mellitus. Blood sugars being monitored and controlled and he is on a no concentrated sweet diet. The patient also kept on insulin. MARY ANNE ZELAYA MD CM:PNTRANS 01 4 MARY ANNE ZELAYA MD 03/11/18225 interface
--- NOTE | ~2018-03-09 | DS ---
[place], [place] DISCHARGE SUMMARY NAME: LIVE SMILEY UNIT #: [id number] ROOM: 521 DOCTOR: MARY ANNE ZELAYA MD BIRTHDATE: [birth year] DOS: 03/11/2018 DISCHARGE DIAGNOSES: 1. Chest pains from uncertain etiology; patient has no known coronary artery disease and he was evaluated by Cardiology. 2. Benign essential hypertension. 3. Chronic pain syndrome. 4. Major depression, recurrent. 5. Type 2 diabetes mellitus. 6. History of defibrillator and pacemaker placement, which were removed later on. 7. Nicotine smoke dependence. 8. History of cocaine and alcohol abuse. 9. Heart catheterization in July 2014 showing normal coronaries and normal stress test in October 2016. 10. Chronic combined systolic/diastolic type congestive heart failure. 11. Mixed hyperlipidemia. HOSPITAL COURSE: The patient was admitted to [facility] when came in with a complaint of squeezing-like sensation in his chest off and on. No other symptoms. The patient was admitted, ruled out for myocardial infarction with serial cardiac enzymes and he does have previous history of normal coronaries on heart catheterization and also a normal cardiac stress test little more than a year ago. The patient's cardiac enzymes were negative and he was seen by Cardiology and recommended further workup as an outpatient. The patient's chest pains were somewhat improved with nitrates, so he is on Imdur. If cleared by Cardiology, he can be discharged to home later today to follow up with his PCP and Cardiology as an outpatient within a week. Benign essential hypertension, treated and controlled. The patient on Vasotec, metoprolol, and amlodipine. Behavioral issues controlled with mirtazapine. Chronic pain syndrome. The patient takes gabapentin. Major depression, recurrent, moderate, treated and controlled with Cymbalta. Type 2 diabetes mellitus. Blood sugars reasonably controlled. LABORATORY DATA: Negative cardiac enzymes. Urine drug screen positive for opiates. Normal serum electrolytes, bilirubin, liver enzymes, normal CBC. DISCHARGE MANAGEMENT: Imdur 60 mg a day, Lantus insulin 20 units subcutaneous daily, amlodipine 10 mg a day, metformin 500 mg daily, Protonix 40 mg a day, ropinirole 1 mg at bedtime, mirtazapine 15 mg at bedtime, gabapentin 300 mg b.i.d., Cymbalta 30 mg a day, lisinopril 40 mg a day, metoprolol 25 mg b.i.d., clonidine 0.1 mg b.i.d., Vicodin p.r.n., Zofran p.r.n. [place], [place] DISCHARGE SUMMARY NAME: LIVE SMILEY UNIT #: [id number] ROOM: 521 DOCTOR: MARY ANNE ZELAYA MD BIRTHDATE: [birth year] MARY ANNE ZELAYA MD CM:MARIA L 1122 MARY ANNE ZELAYA MD 03/12/18 0008 interface
--- NOTE | ~2018-03-09 | WRIGHTHP ---
[place], [place] PATIENT HISTORY AND PHYSICAL EXAM NAME[facility]MILEY [id number] UNIT #: [id number] ROOM: 521 DOCTOR: MARY ANNE ZELAYA MD BIRTHDATE: [birth year] DOS: 03/09/2018 HISTORY OF PRESENT ILLNESS: The patient is a 48-year-old gentleman with a past medical history of: 1. Benign essential hypertension. 2. Mixed hyperlipidemia. 3. Type 2 diabetes mellitus. 4. History of cocaine abuse. 5. Alcoholic cardiomyopathy. 6. Chronic combined systolic and diastolic type congestive heart failure. 7. Nicotine smoke dependence. 8. Paroxysmal atrial fibrillation and pulmonary embolism in the past. 9. History of bronchial asthma. 10. Heart catheterization in 07/2014 showing normal coronaries and normal stress test in 10/2016. 11. Major depression, recurrent. The patient presented to [facility] complaining of squeezing-like sensation in his chest off and on. No dizziness or fainting episodes. No nausea or diaphoresis. No dizziness or fainting episodes. No other GI or urinary symptoms. REVIEW OF SYSTEMS: RESPIRATORY: Some increasing shortness of breath. GASTROINTESTINAL: No nausea, vomiting, diarrhea or constipation. CARDIOVASCULAR: Complains of recurrent squeezing pain in his chest without radiation. HOME MEDICATIONS: The patient takes amlodipine 10 mg a day, clonidine 0.1 mg. Also takes Dexilant, Cymbalta, Vasotec, gabapentin, Vicodin, metoprolol, metformin, mirtazapine, ropinirole, insulin. ALLERGIES: No known drug allergies. PHYSICAL EXAMINATION: GENERAL: Alert and oriented x 3, in no visible distress. VITAL SIGNS: Blood pressure 148/89, heart rate of 60 beats per minute, afebrile, breathing normally. HEENT AND NECK: Extraocular movements are intact. Sclerae are anicteric. Oral mucosa is moist and clean. No obvious facial weakness. Neck is supple without any lymphadenopathy. No thyromegaly. No JVD. No carotid arterial bruits. LUNGS: Clear to auscultation. No wheezing. No rhonchi. CARDIOVASCULAR SYSTEM: Heart rate is regular in rate and rhythm. S1 and S2 normally audible. No significant murmur or any other abnormal cardiac sounds. ABDOMEN: Soft, nontender. No obvious organomegaly. Bowel sounds are present. No obvious herniation. EXTREMITIES: Without significant cyanosis or edema. Warm to touch. CENTRAL NERVOUS SYSTEM: Alert and oriented x 3. Cranial nerves II-XII are intact. Speech is normal. The patient is able to move all extremities. Normal muscle strength. Deep tendon reflexes are equal on both sides. Plantars were [place], [place] PATIENT HISTORY AND PHYSICAL EXAM NAME: LIVE SMILEY UNIT #: [id number] ROOM: 521 DOCTOR: MARY ANNE ZELAYA MD BIRTHDATE: [birth year] downgoing. FAMILY HISTORY: Noncontributory. LABORATORY DATA: Cardiac enzymes negative. Normal serum electrolytes, normal CBC. Physical exam was done. IMPRESSION: 1. The patient's chest pains from uncertain etiology with history of alcoholic cardiomyopathy and normal coronaries in the past with normal stress in October of last year. I have consulted his transportation aide, Dr. Soto, to decide about further management. The patient's cardiac enzymes have been negative and he has been complaining of tight sensation in his chest from uncertain etiology. 2. Benign essential hypertension, treated and controlled. The patient on metoprolol and Vasotec along with amlodipine. 3. Behavioral issues. The patient on mirtazapine. 4. Chronic pain syndrome. The patient remains on gabapentin. 5. Major depression, recurrent, moderate, treated with Cymbalta. 6. Type 2 diabetes mellitus. Blood sugars to be followed. The patient to be kept on a no concentrated sweet diet. The patient also on insulin. MARY ANNE ZELAYA MD CM:HISPHYS:PATIENT HISTORY AND PHYSICAL EXAMINATION 37 31 MARY ANNE ZELAYA MD 03/09/181932 interface
--- NOTE | ~2018-03-09 | EKG ---
[place], [place] ELECTROCARDIOGRAM REPORT NAME: LIVE SMILEY UNIT #: [id number] ROOM: 521 DOCTOR: MANAV DRAFT REPORT BIRTHDATE: [birth year] [facility] Test Date: 2018-03-09 Test Time: 10:55:03 Pat Name: LIVE SMILEY Department: Room: 521 Gender: M Health Service Worker: Hiwot Chicas : 1970 Requested By: MICHAEL IVERSON Order Number: [id number] Reading MD: Zenaida Meade MD Measurements Intervals [place] Rate: 90 P: 55 SD: 160 QRS: -9 QRSD: 107 T: 44 QT: 363 QTc: 444 Interpretive Statements Sinus rhythm Abnormal T, consider ischemia, anterior leads Baseline wander in lead(s) V3,V4,V5,V6 Electronically Signed On 03-09-2018 15:13:04 PDT by Zenaida Meade MD CM:EKGRPT:ELECTROCARDIOGRAM REPORT 1055 1513 MICHAEL EM DRAFT REPORT MICHAEL IVERSON M.D.
[2018-03-09 11:05] LABS: BASO # 0.1 10*3/uL (0.0-0.1); BASO % 0.5 % (0.0-1.0); EOS # 0.1 10*3/uL (0.0-0.4); EOS % 1.3 % (1.0-4.0); HEMOGLOBIN 16.1 g/dl (14.0-18.0); LYMPH # 2.7 10*3/uL (1.3-4.4); LYMPH % 27.6 % (27.0-41.0); MEAN CELL VOLUME 85.5 fl (80.0-94.0); MEAN CORPUSCULAR HGB 29.3 pg (27.0-31.0); MEAN CORPUSCULAR HGB CONC 34.3 g/dl (33.0-37.0); MEAN PLATELET VOLUME 9.4 fl (9.6-12.3); MONO # 0.8 10*3/uL (0.1-1.0); NEUT # 6.2 10*3/uL (2.3-7.9); NEUT % 62.3 % (47.0-73.0); PLATELET COUNT AUTOMATED 226 10*3/uL (130-400); RED CELL DISTRI WIDTH 13.4 % (0-14.5); WHITE BLOOD COUNT 9.9 10*3/uL (4.8-10.8)
[2018-03-09 11:22] LABS: ALBUMIN 4.1 gm/dl (3.1-4.5); ALKALINE PHOSPHATASE 99 U/L (45-117); BUN 16 mg/dl (7-24); CHLORIDE 109 mmol/L (98-107); CREATININE 1.08 mg/dL (0.70-1.30); POTASSIUM 3.7 mmol/L (3.5-5.1); SGOT/AST 22 IU/L (3-35); SGPT/ALT 31 U/L (12-78); SODIUM 143 mmol/L (136-145); TOTAL PROTEIN 7.7 gm/dL (6.4-8.2)
[2018-03-09 11:23] LABS: TROPONIN I < 0.015 ng/ml (<0.045)
[2018-03-09 11:35] LABS: ACT PARTIAL THROMBO TIME 23.4 SECONDS (20.8-31.5); INTERNATIONAL NORM RATIO 1.1 (2.0-3.5)
[2018-03-09] MEDS ORDERED: BASAG SOL SC (13:52)
[2018-03-10] VITALS: BP 115/70
[2018-03-10 06:30] LABS: URINE BARBITURATES < 200 (200ng/ml); URINE BENZODIAZEPINES < 200 (200ng/ml); URINE CANNABINOIDS (THC) < 50 (50ng/ml); URINE COCAINE < 300 (300ng/ml); URINE METHADONE < 300 (300ng/ml); URINE OPIATES > 300 (300ng/ml)
[2018-03-10 06:39] LABS: URINE AMPHETAMINES < 1000 (1000ng/ml)
[2018-03-10 06:41] LABS: URINE PHENCYCLIDINE < 25 (25ng/ml)
[2018-03-10 08:00] VITALS: BP 126/78
[2018-03-10 12:00] VITALS: BP 126/78
[2018-03-10 16:00] VITALS: BP 126/68
[2018-03-10 16:16] VITALS: BP 132/80
[2018-03-10 20:00] VITALS: BP 126/70
[2018-03-11] VITALS: BP 117/62
[2018-03-11 08:00] VITALS: BP 138/59
[2018-03-11] MEDS ORDERED: METOPROLOL SUCC25 M2 PO (11:12)
[2018-03-11 11:53] VITALS: BP 132/90
[2018-03-11 12:00] VITALS: BP 131/70
== END 2018-03-11 12:42 | disposition home or self-care (01) | DRG 313 ==
LOC: ED 10:49 → EDHOLD 12:32 → 5E 12:32
PROVIDERS: Emergency Medicine; Internal Medicine Cardiovascular Disease
DX: R07.89 Other chest pain (principal); I50.42 Chronic combined systolic (congestive) and diastolic (congestive) heart failure; F33.1 Major depressive disorder, recurrent, moderate; I42.6 Alcoholic cardiomyopathy; G89.4 Chronic pain syndrome; E11.9 Type 2 diabetes mellitus without complications; F17.200 Nicotine dependence, unspecified, uncomplicated; E78.2 Mixed hyperlipidemia; I11.0 Hypertensive heart disease with heart failure; I25.10 Atherosclerotic heart disease of native coronary artery without angina pectoris; K21.9 Gastro-esophageal reflux disease without esophagitis; E78.00 Pure hypercholesterolemia, unspecified; I48.0 Paroxysmal atrial fibrillation; J45.909 Unspecified asthma, uncomplicated; F10.10 Alcohol abuse, uncomplicated; Z91.048 Other nonmedicinal substance allergy status; Z79.899 Other long term (current) drug therapy; Z79.4 Long term (current) use of insulin; Z86.711 Personal history of pulmonary embolism; Z95.810 Presence of automatic (implantable) cardiac defibrillator; Z90.89 Acquired absence of other organs; Z82.49 Family history of ischemic heart disease and other diseases of the circulatory system; Z82.3 Family history of stroke; Z84.89 Family history of other specified conditions

== ENCOUNTER → 2018-04-25 | Outpatient (CLI) | payer MEDICARE ==
[~2018-04-25] MED LIST changes: +BASAG SOL SC; +METOPROLOL SUCC25 M2 PO
[2018-04-25 14:17] LABS: HEMATOCRIT 46.9 % (42.0-52.0); HEMOGLOBIN 16.4 g/dl (14.0-18.0); MEAN CELL VOLUME 83.3 fl (80.0-94.0); MEAN CORPUSCULAR HGB 29.1 pg (27.0-31.0); MEAN PLATELET VOLUME 9.6 fl (9.6-12.3); RED BLOOD COUNT 5.63 10*6/uL (4.50-5.90); RED CELL DISTRI WIDTH 12.9 % (0-14.5); WHITE BLOOD COUNT 7.5 10*3/uL (4.8-10.8)
[2018-04-25 14:48] LABS: ALKALINE PHOSPHATASE 83 U/L (45-117); BUN 13 mg/dl (7-24); CHLORIDE 106 mmol/L (98-107); CREATININE 1.12 mg/dL (0.70-1.30); POTASSIUM 3.7 mmol/L (3.5-5.1); SGOT/AST 12 IU/L (3-35); SGPT/ALT 21 U/L (12-78); SODIUM 140 mmol/L (136-145); TOTAL PROTEIN 7.8 gm/dL (6.4-8.2)
[2018-04-26 08:12] LABS: RHEUMATOID ARTHRITIS FACTOR <10.0 IU/mL (0.0-13.9)
== END | disposition home or self-care (01) ==
LOC: LAB 13:51
PROVIDERS: Family Medicine
DX: M25.571 Pain in right ankle and joints of right foot (principal); N40.0 Benign prostatic hyperplasia without lower urinary tract symptoms; E74.9 Disorder of carbohydrate metabolism, unspecified; G62.9 Polyneuropathy, unspecified; M25.50 Pain in unspecified joint; E55.9 Vitamin D deficiency, unspecified; Z79.899 Other long term (current) drug therapy

== ENCOUNTER 2019-03-08 13:06 | Inpatient (IN) | payer MEDICARE ==
[2019-03-08] VITALS (8 sets, daily range): BP systolic 138–162; BP diastolic 78–115
[~2019-03-08] VITALS: Ht 193 cm; Wt 106.3 kg
--- NOTE | ~2019-03-08 | PR ---
[place], [place] PROGRESS NOTE NAME: LIVE SMILEY UNIT #: [id number] ROOM: 532 DOCTOR: MELISSA CARR MD BIRTHDATE: [birth year] DOS: 03/10/2019 CARDIOLOGY FOLLOWUP VISIT NOTE REASON FOR VISIT: Chest pain. HISTORY OF PRESENT ILLNESS: The patient denies further chest pain or shortness of breath. No PND and no orthopnea. No nausea or vomiting. No dizziness. No fever and chills. No cough or hemoptysis. REVIEW OF SYSTEMS: Review of the 8 systems negative except as mentioned above. PHYSICAL EXAMINATION: VITAL SIGNS: Blood pressure 140/84, pulse 69, and respiratory rate is 18. Rhythm strips: The patient in sinus rhythm. GENERAL: Alert, comfortable, and in no acute distress. HEENT: Pupils are round and equal. No jaundice. CHEST: Symmetrical and nontender. NECK: Supple, no distended neck veins, and no carotid bruits. LUNGS: Clear to auscultation bilaterally. HEART: Regular rate and rhythm and no S3. Grade 1/6 soft systolic murmur. No palpable thrills. ABDOMEN: Benign and nontender. Bowel sounds normal. EXTREMITIES: Showed no edema. Distal pulses palpable. SKIN: Warm and dry. No cyanosis and no clubbing. RECTAL: Deferred. GENITOURINARY: Deferred. NEUROLOGIC: Alert with no focal neurologic deficit. MEDICATION AND LABORATORY DATA: Reviewed. IMPRESSION: 1. Atypical chest pain. 2. Tobacco use. 3. History of alcohol use. RECOMMENDATIONS: 1. The patient denies any further chest pains. 2. His blood pressure and heart rates are stable. 3. His 2D echo is pending and the patient can be discharged home today from the cardiac standpoint. 4. The patient is strongly counseled for aggressive risk factor modification for his smoking and alcohol use. 5. No family at the bedside at the time of examination. [place], [place] PROGRESS NOTE NAME: LIVE SMILEY UNIT #: [id number] ROOM: 532 DOCTOR: MELISSA CARR MD BIRTHDATE: [birth year] MELISSA CARR MD CM:OSVALDO [id number] MELISSA CARR MD 03/11/19 0313 interface
--- NOTE | ~2019-03-08 | PR ---
[place], [place] PROGRESS NOTE NAME: LIVE SMILEY UNIT #: [id number] ROOM: 532 DOCTOR: VIVIAN DUKE MD BIRTHDATE: [birth year] DOS: 03/10/2019 SUBJECTIVE: He is resting, not having any complaints. OBJECTIVE: VITAL SIGNS: Graphic trend shows a pressure of 114/84, pulse of 69, respirations 18, temperature 97.4. LUNGS: Diminished breath sounds. Clear. HEART: Regular. ABDOMEN: Obese, soft, nontender. EXTREMITIES: Without any edema. ASSESSMENT AND PLAN: 1. Acute congestive heart failure, possible diastolic. Echocardiogram is pending. He is on diuretics. 2. Chest pain, which is right-sided non-atypical. 3. History of coronary artery disease. Cardiology consultation was ordered. Dr. Meade feels the patient is stable. There are no plans to ischemic workup right now. Says the echo is okay, he should be able to go home, does not need any medication adjustments. 4. Mixed hyperlipidemia. Triglycerides were 520, cholesterol 249, HDL 39, may be a candidate for Repatha, currently not on any medications, so we will add Zocor. 5. Type 2 diabetes mellitus, controlled. Hemoglobin A1c within normal limits. VIVIAN DUKE MD CM:PNTRANS [id number] VIVIAN DUKE MD 03/11/19 0028 interface
--- NOTE | ~2019-03-08 | EKG ---
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
--- NOTE | ~2019-03-08 | EKG ---
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
--- NOTE | ~2019-03-08 | EKG ---
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 : 1970 Requested By: JOSEFA GAVIRIA Order Number: [id number] Reading MD: Zenaida Meade MD Measurements Intervals [place] Rate: 63 P: 51 [place]: 162 QRS: -17 QRSD: 101 T: -30 QT: 432 QTc: 443 Interpretive Statements Sinus rhythm Probable left ventricular hypertrophy Abnrm T, consider ischemia, anterolateral lds Baseline wander in lead(s) V5 Compared to ECG 03/10/2018 12:13:29 Possible ischemia now present T-wave abnormality no longer present Electronically Signed On 03-08-2019 14:47:32 PDT by Zenaida Meade MD CM:EKGRPT:ELECTROCARDIOGRAM REPORT [id number] JOSEFA HARRISONANY DRAFT REPORT JOSEFA GAVIRIA MD
--- NOTE | ~2019-03-08 | DS ---
[place], [place] DISCHARGE SUMMARY NAME: LIVE SMILEY UNIT #: [id number] ROOM: 532 DOCTOR: VIVIAN DUKE MD BIRTHDATE: [birth year] DOS: 03/10/2019 HOSPITAL COURSE: The patient was admitted to the hospital with complaints of chest pain and shortness of breath. Please refer to H and P for details. After admission, the patient was started on IV diuretics, breathing treatments. Cardiology consultation was obtained. Rule out NV protocol was done, which has come back negative. Dr. Viera did see the patient. Echocardiogram was ordered, which shows normal LV function. He did not recommend any further studies. On 03/10/2019, the patient is relatively stable. The plan is to discharge him to home today to be followed up as an outpatient by his PCP. DISCHARGE MEDICATIONS: Unchanged from his admission medications. VIVIAN DUKE MD CM:DISCHARG [id number] VIVIAN DUKE MD 04/04/19 0844 interface
--- NOTE | ~2019-03-08 | WRIGHTHP ---
[place], [place] PATIENT HISTORY AND PHYSICAL EXAM [id number] UNIT #: [id number] ROOM: 532 DOCTOR: VIVIAN DUKE MD BIRTHDATE: [birth year] DOS: 03/08/2019 HISTORY OF PRESENT ILLNESS: This patient is 49 years old, known to me from previous admissions, comes in with complaints of shortness of breath and chest pain. The patient started having the symptoms about 2-3 days ago and continued to worsen. He was worried that he may be having a PE and so he decided to come in. He denies having any chest pains since morning. The shortness of breath is improving. Does not have any leg edema. He has not had any echocardiogram or stress test in the recent past. PAST MEDICAL HISTORY: Significant for: 1. Last hospitalization, 02/2018. 2. Stress test in 07/2017 was negative. 3. History of cardiac catheterization in 2014 shows normal coronaries. 4. Chronic pain syndrome. 5. Benign hypertension. 6. Major depression, recurrent, mild. 7. History of substance abuse. 8. History of cardiomyopathy with placement of AICD. These devices have been removed. MEDICATIONS: That he is currently on are clonidine p.o. twice a day, amlodipine 10 daily, Dexilant 60 daily, Vasotec 20 b.i.d., gabapentin 300 b.i.d., isosorbide 30 b.i.d., metformin 500 b.i.d., metoprolol 50 b.i.d., mirtazapine 15 at bedtime, Requip 1 mg at bedtime, sertraline 50 daily, and insulin Lantus 25 units daily. SOCIAL HISTORY: Nonsmoker and does not use any alcohol anymore. PHYSICAL EXAMINATION: GENERAL: He is awake, alert, and oriented. VITAL SIGNS: Graphic trend shows a pressure of 118/84, pulse of 84, respirations 16, and temperature 98.4. NECK: Supple. No lymph nodes. LUNGS: Diminished breath sounds. HEART: Regular. No murmurs or gallops heard. ABDOMEN: Obese. EXTREMITIES: Without any edema. ASSESSMENT AND PLAN: 1. The patient who presents with shortness of breath and chest pain, precordial chest pain. We will have troponin set ordered. Consultation with his supervisor stave finishing, Dr. Cardozo has been obtained. 2. Shortness of breath with chest x-ray showing evidence of congestive heart failure, possible acute diastolic. One dose of diuretic was given and he is diuresed nicely this morning. A repeat chest x-ray will be ordered. 3. Type 2 diabetes mellitus. ADA diet. Blood sugars to be checked twice daily. 4. Benign hypertension, controlled. [place], [place] PATIENT HISTORY AND PHYSICAL EXAM NAME: LIVE SMILEY UNIT #: [id number] ROOM: [facility] DOCTOR: VIVIAN DUKE MD BIRTHDATE: [birth year] VIVIAN DUKE MD CM:HISPHYS:PATIENT HISTORY AND PHYSICAL EXAMINATION [id number] VIVIAN DUKE MD 03/09/19 0907 interface
[~2019-03-08 13:06] MED LIST changes: +METFORMIN HCL500 M3 PO; -METFORMIN500 MG PO; +REQUIP0.25 M1 PO; -REQUIP1 M1 PO
[2019-03-08 13:31] LABS: BASO # 0.1 10*3/uL (0.0-0.1); BASO % 0.7 % (0.0-1.0); EOS # 0.2 10*3/uL (0.0-0.4); EOS % 3.1 % (1.0-4.0); HEMATOCRIT 48.2 % (42.0-52.0); LYMPH # 2.5 10*3/uL (1.3-4.4); LYMPH % 34.6 % (27.0-41.0); MEAN CORPUSCULAR HGB 29.6 pg (27.0-31.0); MEAN CORPUSCULAR HGB CONC 35.3 g/dl (33.0-37.0); MEAN PLATELET VOLUME 9.5 fl (9.6-12.3); MONO # 0.6 10*3/uL (0.1-1.0); MONO % 8.6 % (3.0-9.0); NEUT # 3.8 10*3/uL (2.3-7.9); NEUT % 52.7 % (47.0-73.0); PLATELET COUNT AUTOMATED 214 10*3/uL (130-400); RED BLOOD COUNT 5.74 10*6/uL (4.50-5.90); RED CELL DISTRI WIDTH 12.8 % (0-14.5); WHITE BLOOD COUNT 7.2 10*3/uL (4.8-10.8)
[2019-03-08 13:47] LABS: ALBUMIN 3.7 gm/dl (3.1-4.5); ALKALINE PHOSPHATASE 87 U/L (45-117); BUN 14 mg/dl (7-24); CHLORIDE 106 mmol/L (98-107); CREATININE 0.93 mg/dL (0.70-1.30); POTASSIUM 3.8 mmol/L (3.5-5.1); SGOT/AST 17 IU/L (3-35); SGPT/ALT 26 U/L (12-78); SODIUM 137 mmol/L (136-145); TOTAL PROTEIN 7.7 gm/dL (6.4-8.2)
[2019-03-08 13:55] LABS: TROPONIN I < 0.015 ng/ml (<0.045)
[2019-03-08 13:58] LABS: ACT PARTIAL THROMBO TIME 26.2 SECONDS (20.0-32.1)
[2019-03-08 15:28] LABS: BILIRUBIN NEGATIVE (NEGATIVE); BLOOD NEGATIVE (NEGATIVE); CLARITY CLEAR (CLEAR); COLOR YELLOW (YELLOW); GLUCOSE NEGATIVE (NEGATIVE); KETONE NEGATIVE (NEGATIVE); LEUKO ESTERASE NEGATIVE (NEGATIVE); NITRITE NEGATIVE (NEGATIVE); UROBILINOGEN 0.2 E.U./dl (0.2-1.0)
[2019-03-08 15:35] LABS: EPITHELIAL CELLS 0-2
[2019-03-08 15:37] LABS: URINE AMPHETAMINES < 1000 (1000ng/ml); URINE BARBITURATES < 200 (200ng/ml); URINE BENZODIAZEPINES < 200 (200ng/ml); URINE CANNABINOIDS (THC) < 50 (50ng/ml); URINE COCAINE < 300 (300ng/ml); URINE METHADONE < 300 (300ng/ml); URINE OPIATES < 300 (300ng/ml)
[2019-03-08 15:40] LABS: URINE PHENCYCLIDINE < 25 (25ng/ml)
--- NOTE | 2019-03-08 16:00 | NUR ---
A 49, admitted to , under the services of VIVIAN Zepeda MD with a diagnosis of CHEST PAIN. Chief complaint is RIGHT SIDED CHEST PAIN AND SHORTNESS OF BREATH. Patient arrived via bed from ER. Monitor applied. Initial assessment completed. Vital signs taken and recorded. VIVIAN ZEPEDA MD notified of admission to the unit. Orders received. See assessment for past medical history, medications and allergies. Patient and/or family oriented to unit. [facility] visitation policy reviewed. Clothing/patient valuable form completed. FABIAN ROSADO
[2019-03-08] MEDS ORDERED: METOPROLOL SUCC50 M1 PO (16:32)
[2019-03-08] MEDS ORDERED: IMDUR SA30 MG PO (16:36)
[2019-03-08] MEDS ORDERED: NITROSTAT0.4 MG SL (16:36)
[2019-03-08] MEDS ORDERED: ZOLOFT50 MG PO (16:37)
[2019-03-08] MEDS ORDERED: ATIVAN1 MG PO (16:37)
--- NOTE | 2019-03-08 18:43 | NUR ---
NOTIFIED 'S ANSWERING SERVICE OF [facility]
--- NOTE | 2019-03-08 19:40 | NUR ---
24 HOUR CHART CHECK COMPLETE
--- NOTE | 2019-03-08 20:00 | NUR ---
CALLED TO PATIENT ROOM FOR COMPLAINT OF CHEST PAIN. PATIENT ASSESSMENT COMPLETED WITHOUT INCIDENT, EKG AND LAB WORK JUST COMPLETED. CURRENT EKG AND PREVIOUS EKG COMPAIRED AND NO ABNORMALITIES OR CHANGES SEEN, LAB WORK NEGATIVE AT THIS TIME. MEDICATED WITH ATIVAN AT PATIENT REQUEST FOR ANXIETY. CALL LIGHT WITHIN REACH WILL CONTINUE TO MONITOR.
[2019-03-09] VITALS: BP 118/84
--- NOTE | 2019-03-09 | NUR ---
PATIENT RESTING IN BED IN A POSITION OF COMFORT. RESPIRATIONS EASY AND NON-LABORED AT THIS TIME. CALL LIGHT WITHIN REACH. WILL CONTINUE TO MONITOR.
--- NOTE | 2019-03-09 04:00 | NUR ---
PATIENT RESTING IN BED IN A POSITION OF COMFORT. RESPIRATIONS EASY AND NON-LABORED AT THIS TIME. NOT AWAKENED PER [facility] POLICY. CALL LIGHT WITHIN REACH WILL CONTINUE TO MONITOR.
[2019-03-09 08:00] VITALS: BP 138/80
[2019-03-09 08:13] LABS: CHOLESTEROL 249 mg/dL (<200); HDL CHOLESTEROL 39 mg/dl (40-60); TRIGLYCERIDES 520 mg/dl (<150)
[2019-03-09 12:00] VITALS: BP 121/69
[2019-03-09 16:00] VITALS: BP 114/72
--- NOTE | 2019-03-09 19:45 | NUR ---
24 HOUR CHART CHECK COMPLETED
[2019-03-09 20:00] VITALS: BP 127/84
[2019-03-09 20:30] VITALS: BP 142/82
--- NOTE | 2019-03-09 20:30 | NUR ---
PATIENT ASSESSMENT COMPLETE AT THIS TIME WITHOUT INCIDENT. PATIENT COMPLAINING OF A HEADACHE 10/28, MEDICATED WITH TYLENOL AT THIS TIME, SEE EMAR. MANUAL B/P 142/82. PATIENT DENIES ANY OTHER DISTRESS OR PAIN AT THIS TIME. REQUESTED ATIVAN AT THIS TIME FOR SLEEP, SEE EMAR. CALL LIGHT WITHIN REACH, WILL CONTINUE TO MONITOR.
[2019-03-10] VITALS: BP 113/67
--- NOTE | 2019-03-10 00:50 | NUR ---
PATIENT RESTING IN BED IN A POSITION OF COMFORT. RESPIRATIONS EASY AND NONLABORED AT THIS TIME. CALL LIGHT WITHIN REACH, WILL CONTINUE TO MONITOR.
--- NOTE | 2019-03-10 04:32 | NUR ---
PATIENT RESTING IN A POSITION OF COMFORT IN BED. RESPIRATIONS EASY AND NONLABORED AT THIS TIME. CALL LIGHT WITHIN REACH, WILL CONTINUE TO MONITOR.
[2019-03-10 08:00] VITALS: BP 111/77; BP 114/84
--- NOTE | 2019-03-10 10:19 | NUR ---
Shift chart check completed.
--- NOTE | 2019-03-10 10:30 | NUR ---
Tribal Delegate in to talk to patient. Patient states lives at home with his fiance. There are 4 steps in the home. Physician: Dr. Jayant Santo Pharmacy: [facility] Home health services: none Patient's level of ADLs: INDEPENDENT Patient has working utilities: yes DME: none Follow-up physician's appointment after d/c: he prefers to make his won follow up appt after discharge Does patient want to access PORTAL?: no Discharge plan discussed with patient. He lives at home with his fiance. He is independent in his ADLs and ambulation. Discussed home health care services and he denies any home needs at this time. When medically stable he will be discharged to home. His fiance will provide transportation on discharge. TIFFANIE GALLEGOS
--- NOTE | 2019-03-10 11:19 | NUR ---
Patient resting quietly with no c/o discomfort. Respirations easy and regular. Vital signs stable. No overt distress. HISSOM,YAMIL
[2019-03-10 12:00] VITALS: BP 111/62
[2019-03-10 16:00] VITALS: BP 104/64
--- NOTE | 2019-03-10 16:04 | NUR ---
Discharge instructions reviewed with patient/family. Patient receptive and verbalizes understanding. Follow-up care arranged. Written instructions given to patient/family. YAMIL RUIZ
--- NOTE | 2019-03-10 16:04 | NUR ---
The Discharge Plan/Instructions have been completed.
--- NOTE | 2019-03-10 16:04 | NUR ---
SPOKE WITH DR DUKE REGARDING ECHO RESULTS. STATE TO GO AHEAD AND DISCHARGE PATIENT
== END 2019-03-10 16:04 | disposition home or self-care (01) | DRG 292 ==
LOC: ED 13:06 → 5E 15:27 → EDHOLD 15:27 → 5E 15:37
PROVIDERS: Emergency Medicine; ADMIT Internal Medicine
DX: I11.0 Hypertensive heart disease with heart failure (principal); F33.0 Major depressive disorder, recurrent, mild; I42.9 Cardiomyopathy, unspecified; R07.89 Other chest pain; I50.33 Acute on chronic diastolic (congestive) heart failure; E78.2 Mixed hyperlipidemia; E78.1 Pure hyperglyceridemia; G89.4 Chronic pain syndrome; E11.9 Type 2 diabetes mellitus without complications; I25.10 Atherosclerotic heart disease of native coronary artery without angina pectoris; K21.9 Gastro-esophageal reflux disease without esophagitis; Z82.49 Family history of ischemic heart disease and other diseases of the circulatory system; Z82.3 Family history of stroke; Z91.048 Other nonmedicinal substance allergy status; Z95.810 Presence of automatic (implantable) cardiac defibrillator; Z91.11 Patient's noncompliance with dietary regimen

== ENCOUNTER 2019-05-23 13:24 | Emergency (ER) | payer MEDICARE ==
[~2019-05-23] VITALS: Ht 193 cm; Wt 108.9 kg
[~2019-05-23 13:24] MED LIST changes: +ATIVAN1 MG PO; +IMDUR SA30 MG PO; +METOPROLOL SUCC50 M1 PO; +NITROSTAT0.4 MG SL
[2019-05-23 14:39] LABS: BASO # 0.1 10*3/uL (0.0-0.1); BASO % 0.6 % (0.0-1.0); EOS # 0.2 10*3/uL (0.0-0.4); EOS % 2.1 % (1.0-4.0); HEMATOCRIT 44.6 % (42.0-52.0); HEMOGLOBIN 15.8 g/dl (14.0-18.0); LYMPH # 2.3 10*3/uL (1.3-4.4); LYMPH % 28.4 % (27.0-41.0); MEAN CELL VOLUME 85.9 fl (80.0-94.0); MEAN CORPUSCULAR HGB 30.4 pg (27.0-31.0); MEAN CORPUSCULAR HGB CONC 35.4 g/dl (33.0-37.0); MEAN PLATELET VOLUME 9.9 fl (9.6-12.3); MONO # 0.7 10*3/uL (0.1-1.0); MONO % 8.6 % (3.0-9.0); NEUT # 4.8 10*3/uL (2.3-7.9); NEUT % 59.7 % (47.0-73.0); PLATELET COUNT AUTOMATED 223 10*3/uL (130-400); RED BLOOD COUNT 5.19 10*6/uL (4.50-5.90); RED CELL DISTRI WIDTH 13.1 % (0-14.5); WHITE BLOOD COUNT 8.1 10*3/uL (4.8-10.8)
[2019-05-23 14:49] LABS: ACT PARTIAL THROMBO TIME 25.2 SECONDS (20.0-32.1)
[2019-05-23 14:55] LABS: ALBUMIN 3.7 gm/dl (3.1-4.5); ALKALINE PHOSPHATASE 97 U/L (45-117); BUN 17 mg/dl (7-24); CHLORIDE 103 mmol/L (98-107); CREATININE 1.16 mg/dL (0.70-1.30); LIPASE 189 U/L (73-393); POTASSIUM 4.2 mmol/L (3.5-5.1); SGOT/AST 28 IU/L (3-35); SODIUM 138 mmol/L (136-145); TOTAL PROTEIN 7.4 gm/dL (6.4-8.2)
[2019-05-23 14:56] LABS: SGPT/ALT 46 U/L (12-78)
[2019-05-23 15:08] LABS: BILIRUBIN NEGATIVE (NEGATIVE); BLOOD NEGATIVE (NEGATIVE); CLARITY CLEAR (CLEAR); COLOR YELLOW (YELLOW); GLUCOSE NEGATIVE (NEGATIVE); KETONE NEGATIVE (NEGATIVE); LEUKO ESTERASE NEGATIVE (NEGATIVE); NITRITE NEGATIVE (NEGATIVE); SPECIFIC GRAVITY 1.025 (1.005-1.030); UROBILINOGEN 0.2 E.U./dl (0.2-1.0)
[2019-05-23 15:48] LABS: BACTERIA TRACE; EPITHELIAL CELLS 0-2; RBC 0-2 rbc/hpf (0-2); WBC 0-2 wbc/hpf (0-5)
[2019-05-23] MEDS ORDERED: PREDNISONE50 MG PO (16:31)
[2019-05-23] MEDS ORDERED: DICYCLOMINE HCL10 MG PO (16:31)
[2019-05-23] MEDS ORDERED: ZOFRAN4 MG PO (16:31)
== END 2019-05-23 16:52 | disposition home or self-care (01) ==
LOC: ED 13:24
PROVIDERS: Nurse Practitioner Family
DX: A08.4 Viral intestinal infection, unspecified (principal); L30.9 Dermatitis, unspecified; R11.2 Nausea with vomiting, unspecified; I11.0 Hypertensive heart disease with heart failure; I50.32 Chronic diastolic (congestive) heart failure; I25.10 Atherosclerotic heart disease of native coronary artery without angina pectoris; K21.9 Gastro-esophageal reflux disease without esophagitis; E78.00 Pure hypercholesterolemia, unspecified; E11.9 Type 2 diabetes mellitus without complications; F17.200 Nicotine dependence, unspecified, uncomplicated; Z79.899 Other long term (current) drug therapy